=== PATIENT | female | born 1950 | race Caucasian/White ===

== ENCOUNTER 2018-09-03 11:57 | Inpatient (IN) | payer OTHER ==
[~2018-09-03] VITALS: Ht 157.5 cm; Wt 74.4 kg
[2018-09-03 12:00] VITALS: BP_SYST 81
[2018-09-03] MEDS ORDERED: NACL 0.9% 1,000 ML IV ONE ×2 (12:11→12:15)
[2018-09-03 12:35] LABS: BASOPHILS # (AUTO) 0.1 K/uL (0.0-0.2); BASOPHILS % (AUTO) 0.8 % (0.0-2.0); EOSINOPHILS % (AUTO) 0.1 % (0.0-4.0); HEMATOCRIT 38.4 % (36-48); HEMOGLOBIN 12.7 g/dL (12.0-16.0); LYMPHOCYTES # (AUTO) 0.5 K/uL (1.0-5.5); LYMPHOCYTES % (AUTO) 3.4 % (20.5-51.5); MEAN CORPUSCULAR HEMOGLOBIN 29 pg (27-31); MEAN CORPUSCULAR HGB CONC 33 % (32-36); MEAN CORPUSCULAR VOLUME 86 fL (79.0-98.0); MONOCYTES # (AUTO) 0.8 K/uL (0.0-1.0); MONOCYTES % (AUTO) 5.7 % (1.7-9.3); NEUTROPHILS # (AUTO) 12.5 K/uL (1.8-7.7); PLATELET COUNT (AUTO) 194 K/uL (130-430); RED BLOOD CELL COUNT(AUTO) 4.45 MIL/uL (4.2-6.2); RED CELL DISTRIBUTION WIDTH 12.7 % (9.0-15.0); WHITE BLOOD COUNT (AUTO) 13.9 K/uL (4.8-10.8)
[2018-09-03 12:44] LABS: CALCIUM 8.5 mg/dL (8.4-11.0); CREATININE 1.56 mg/dL (0.55-1.30); POTASSIUM 3.8 mmol/L (3.5-5.1)
[2018-09-03 12:48] LABS: ALBUMIN 3.1 g/dL (3.4-4.8)
[2018-09-03 14:44] VITALS: BP_SYST 114
[2018-09-03 15:31] LABS: BILIRUBIN,URINE NEGATIVE (NEGATIVE); BLOOD, URINE 2+ (NEGATIVE); CLARITY/URINE CLEAR (CLEAR); COLOR,URINE YELLOW (YELLOW); GLUCOSE,URINE NEGATIVE (NEGATIVE); KETONES,URINE NEGATIVE (NEGATIVE); LEUKOCYTE ESTERASE ,URINE 1+ (NEGATIVE); NITRITE, URINE POSITIVE (NEGATIVE); PH,URINE 5.5 (5.0-8.0); PROTEIN URINE NEGATIVE (NEGATIVE); UROBILINOGEN,URINE 0.2 (0.2-1.0)
[2018-09-03 15:36] LABS: BACTERIA,URINE MODERATE /HPF (None Seen)
[2018-09-03] MEDS: NACL 0.9% 1,000 ML IV SCH (15:37)
[2018-09-03] MEDS ORDERED: LISI-600 PO (17:58)
[2018-09-03] MEDS ORDERED: CARV12.548 PO (17:58)
[2018-09-03 19:35] VITALS: BP_SYST 116
[2018-09-04 00:11] VITALS: BP_SYST 140
[2018-09-04] MEDS ORDERED: ONDANSETRON HCL 4 MG/2 ML VIAL IVP PRN (00:45)
[2018-09-04] MEDS ORDERED: LORazepam 1 MG TABLET PO ONE (00:45)
[2018-09-04] MEDS: NACL 0.9% 1,000 ML IV SCH ×2 (05:01→19:56)
[2018-09-04] MEDS ORDERED: cloNIDine HCL 0.1 MG TABLET PO PRN (07:30)
[2018-09-04] MEDS ORDERED: ENALAPRILAT DIHYDRATE 1.25 MG/ML VIAL IVP PRN (07:30)
[2018-09-04] MEDS ORDERED: hydrALAZINE HCL 20 MG/ML VIAL IVP PRN (07:30)
[2018-09-04 08:05] VITALS: BP_SYST 129
[2018-09-04] MEDS: CARVEDILOL 12.5 MG TABLET (COREG) PO SCH ×2 (08:55→21:24)
[2018-09-04 10:07] LABS: BASOPHILS % (AUTO) 0.2 % (0.0-2.0); EOSINOPHILS # (AUTO) 0.1 K/uL (0.0-0.4); EOSINOPHILS % (AUTO) 0.6 % (0.0-4.0); HEMATOCRIT 34.4 % (36-48); HEMOGLOBIN 11.5 g/dL (12.0-16.0); LYMPHOCYTES % (AUTO) 8.8 % (20.5-51.5); MEAN CORPUSCULAR HEMOGLOBIN 29 pg (27-31); MEAN CORPUSCULAR HGB CONC 34 % (32-36); MEAN CORPUSCULAR VOLUME 87 fL (79.0-98.0); MONOCYTES % (AUTO) 9.1 % (1.7-9.3); NEUTROPHILS # (AUTO) 8.7 K/uL (1.8-7.7); NEUTROPHILS % (AUTO) 81.3 % (40.0-70.0); PLATELET COUNT (AUTO) 206 K/uL (130-430); RED BLOOD CELL COUNT(AUTO) 3.98 MIL/uL (4.2-6.2); RED CELL DISTRIBUTION WIDTH 12.9 % (9.0-15.0); WHITE BLOOD COUNT (AUTO) 10.8 K/uL (4.8-10.8)
[2018-09-04 10:22] LABS: CREATININE 0.89 mg/dL (0.55-1.30); POTASSIUM 3.7 mmol/L (3.5-5.1)
[2018-09-04 10:49] LABS: ALBUMIN 2.6 g/dL (3.4-4.8); THYROID STIMULATING HORMONE 3.06 uIu/mL (0.34-4.82); TOTAL BILIRUBIN 0.5 mg/dL (0.0-1.0)
[2018-09-04 11:23] VITALS: BP_SYST 139
[2018-09-04 15:29] VITALS: BP_SYST 144
[2018-09-04] MEDS ORDERED: DIATR MEGLU/DIATRIZ SOD 30 ML SOLUTION PO ONE (16:16)
[2018-09-04 19:45] VITALS: BP_SYST 137
[2018-09-04] MEDS ORDERED: TEMAZEPAM 15 MG CAPSULE PO PRN (20:45)
[2018-09-05 00:11] VITALS: BP_SYST 140
[2018-09-05 05:51] VITALS: BP_SYST 140
[2018-09-05 08:00] VITALS: BP_SYST 154
[2018-09-05] MEDS: CARVEDILOL 12.5 MG TABLET (COREG) PO SCH (08:53)
[2018-09-05] MEDS ORDERED: LEVOFLOXACIN 500 MG TABLET PO ONE (09:00)
[2018-09-05 09:26] VITALS: BP_SYST 154
[2018-09-05] MEDS ORDERED: OMEP20TA20 PO (09:30)
[2018-09-05] MEDS ORDERED: CIPR-211 PO (09:31)
== END 2018-09-05 10:20 | disposition home or self-care (01) | DRG 314 ==
LOC: SED 11:57 → STU 13:56
PROVIDERS: ADMIT Internal Medicine Hospice and Palliative Medicine; ATTEND Internal Medicine Hospice and Palliative Medicine
DX: I95.9 Hypotension, unspecified (principal); N17.0 Acute kidney failure with tubular necrosis; E87.1 Hypo-osmolality and hyponatremia; N39.0 Urinary tract infection, site not specified; I10 Essential (primary) hypertension; E11.65 Type 2 diabetes mellitus with hyperglycemia; E87.8 Other disorders of electrolyte and fluid balance, not elsewhere classified; R10.9 Unspecified abdominal pain; R16.0 Hepatomegaly, not elsewhere classified; E86.0 Dehydration; Z88.0 Allergy status to penicillin; Z88.8 Allergy status to other drugs, medicaments and biological substances
CPT/HCPCS: 36415; 71045; 76700-TC; 80053; 81000-TC; 82533; 82962; 83605; 83690-TC; 84443-TC; 85025; 87040-TC; 87086; 87186-TC; 93005; 96360; 96361; 99285; G0378; J2405; J7030; Q9964

== ENCOUNTER 2019-12-22 06:05 | Day surgery (SDC) | payer OTHER ==
[~2019-12-22] VITALS: Ht 160 cm; Wt 72.6 kg
[~2019-12-22 06:05] MED LIST: CARV12.548 PO; CIPR-211 PO; OMEP20TA20 PO
[2019-12-22] MEDS ORDERED: LORA-258 PO (07:30)
[2019-12-22] MEDS ORDERED: ROSU10TA2 PO (07:30)
[2019-12-22] MEDS ORDERED: XALEYE OP (07:30)
[2019-12-22] MEDS ORDERED: TIMO5DRO15 EACH EYE (07:30)
[2019-12-22] MEDS ORDERED: LISI-600 PO (07:30)
[2019-12-22] MEDS ORDERED: GLUXR500 PO (07:30)
[2019-12-22] MEDS ORDERED: SEVOFLURANE 15 MIN GAS INH ONE (07:40)
[2019-12-22] MEDS ORDERED: CLINDAMYCIN PHOSPHATE 900 mg/50mL D5W IV ONE (07:40)
[2019-12-22] MEDS ORDERED: PROPOFOL 200MG/ 20ML VIAL (DIPRIVAN) IV ONE (07:40)
[2019-12-22] MEDS ORDERED: NS IRRIG SOLN 1000 ML IR ONE (07:40)
[2019-12-22] MEDS ORDERED: LR 1,000 ML IV.SOLN IV ONE (07:40)
[2019-12-22] MEDS ORDERED: SUCCINYLCHOLINE CHLORIDE 20 MG/ML(QUELICIN) IVP ONE (07:40)
[2019-12-22] MEDS ORDERED: fentaNYL CITRATE 250 MCG/5 ML AMP IV ONE (07:40)
[2019-12-22] MEDS ORDERED: KETOROLAC TROMETHAMINE 30 MG VIAL IVP ONE (07:40)
[2019-12-22] MEDS ORDERED: DEXAMETHASONE SOD PHOSPHATE 4 MG/ML VIAL IVP ONE (07:40)
[2019-12-22] MEDS ORDERED: LIDOCAINE/EPI 1% 1:100000 20 ML VIAL INJ ONE (07:40)
[2019-12-22] MEDS ORDERED: ONDANSETRON HCL 4 MG/2 ML VIAL IVP ONE (07:40)
[2019-12-22] MEDS ORDERED: THROMBIN (BOVINE) 5000 UNITS/ VIAL TP ONE (07:54)
[2019-12-22] MEDS ORDERED: ONDANSETRON HCL 4 MG/2 ML VIAL IVP PRN (08:15)
[2019-12-22] MEDS ORDERED: HYDROmorphone 1 MG INJ. 1 MG/ML AMPUL IVP PRN (08:15)
[2019-12-22] MEDS ORDERED: HYDROcodone/ACETAMIN 5-325 MG TAB (NORCO/ VICODIN) PO PRN (10:00)
[2019-12-22] MEDS ORDERED: HYDROmorphone 1 MG INJ. 1 MG/ML AMPUL ONE (10:52)
--- NOTE | 2019-12-22 11:20 | NUR ---
Patient transferred to unit in stable condition. No distress noted.
[2019-12-22 11:40] VITALS: BP_SYST 161
[2019-12-22] MEDS: NORMAL SALINE 5 ML DISP.SYRIN IVF SCH ×4 (14:30→22:00)
--- NOTE | 2019-12-22 14:30 | NUR ---
Routine Patient resting quietly in bed with no complaint of pain at this time. Patient stable.
[2019-12-22 16:39] VITALS: BP_SYST 162
--- NOTE | 2019-12-22 17:30 | NUR ---
Routine Patient resting in bed with eyes closed. No distress noted at this time. Patient stable.
--- NOTE | 2019-12-22 19:22 | NUR ---
PAGED PAGED DOCTOR BEDOLLA
--- NOTE | 2019-12-22 19:54 | NUR ---
2ND PAGE PAGED DOCTOR CHIOMA
[2019-12-22 20:00] VITALS: BP_SYST 138
--- NOTE | 2019-12-22 20:12 | NUR ---
PAGED PAGED DOCTOR SHIN FOR ORDERS
[2019-12-22] MEDS ORDERED: DIPHENHYDRAMINE HCL 25 MG CAPSULE PO ONE (21:00)
[2019-12-22] MEDS: CARVEDILOL 12.5 MG TABLET (COREG) PO SCH (22:55)
[2019-12-22] MEDS: DEXAMETHASONE SOD PHOSPHATE 4 MG/ML VIAL IVP SCH (22:56)
[2019-12-23 00:19] VITALS: BP_SYST 118
[2019-12-23] MEDS: NORMAL SALINE 5 ML DISP.SYRIN IVF SCH ×4 (06:39→14:00)
[2019-12-23] MEDS: DEXAMETHASONE SOD PHOSPHATE 4 MG/ML VIAL IVP SCH (06:40)
--- NOTE | 2019-12-23 07:42 | NUR ---
12/23/19 at 0630 Fingerstick = 184.
[2019-12-23 07:54] VITALS: BP_SYST 127
--- NOTE | 2019-12-23 08:00 | NUR ---
Note Pt sitting up in bed eating her breakfast. No SOB/resp distress or throat pain/discomfort or difficulty swallowing/eating noted at this time. IV in left wrist intact and patent at this time. Dr Potter was at bedside at 0750am. Assessment completed and dressing on throat was removed. Incision at throat intact with steri- strips. No bleeding/swelling/drainage/odor noted at this time. No needs noted at this time. Call light within reach.
[2019-12-23] MEDS: CARVEDILOL 12.5 MG TABLET (COREG) PO SCH (08:30)
[2019-12-23] MEDS ORDERED: LISINOPRIL 20 MG TABLET PO SCH (09:00)
--- NOTE | 2019-12-23 11:35 | NUR ---
Note Pt has been ambulating in room and to restroom with steady gait. Pt denies any needs at this time. Pt will be leaving at 1400 to go home. Family will pick pt up. Call light within reach.
[2019-12-23 12:30] VITALS: BP_SYST 135
[2019-12-23 13:16] VITALS: BP_SYST 124
--- NOTE | 2019-12-23 13:45 | NUR ---
Note Pt's left wrist IV was dc'd and site benign. No swelling/bleeding/tenderness noted at site. Pt denies any SOB/resp distress or throat pain/discomfort at this time. Pt given discharge instructions and questions/concerns were answered at this time. Pt packed all belongings. Checked side table and drawers for belongings. Pt stable. Pt dressed in street clothes at this time.
--- NOTE | 2019-12-23 14:55 | NUR ---
Note Pt off the floor to private car with belongings and discharge paperwork. Pt's throat incision intact and steri strips clean/dry/intact at this time. Pt was checked q1' and PRN all shift for needs and care. Pt stable.
[2019-12-23] MEDS ORDERED: DIPHENHYDRAMINE HCL 25 MG CAPSULE PO ONE (21:00)
== END 2019-12-23 15:55 | disposition home or self-care (01) ==
LOC: SDS 06:05 → SMU 06:05 → EDSTATUS 07:30 → SMU 11:41 → SDS 12-23 15:55
PROVIDERS: ATTEND Otolaryngology Plastic Surgery within the Head & Neck
DX: C73 Malignant neoplasm of thyroid gland (principal); I10 Essential (primary) hypertension; E11.9 Type 2 diabetes mellitus without complications; F32.9 Major depressive disorder, single episode, unspecified; K21.9 Gastro-esophageal reflux disease without esophagitis; M81.0 Age-related osteoporosis without current pathological fracture; E78.5 Hyperlipidemia, unspecified; J45.909 Unspecified asthma, uncomplicated; Z88.0 Allergy status to penicillin; M19.90 Unspecified osteoarthritis, unspecified site
CPT/HCPCS: 36415; 60240; 82310; 82962; 88307; 88333; C1782; J0330; J1100 ×2; J1170; J1885; J2405; J2704; J3010; J3490; J7120; Q0163

== ENCOUNTER 2022-03-23 14:13 | Emergency (ER) | payer BC, OTHER ==
[~2022-03-23] VITALS: Ht 157.5 cm; Wt 72.6 kg
[~2022-03-23 14:13] MED LIST changes: -CIPR-211 PO; +CIPR500T5 PO; +GLUXR500 PO; +LISI20TA30 PO; +LORA-258 PO; +ROSU10TA2 PO; +TIMO5DRO15 EACH EYE; +XALEYE OP
[2022-03-23 14:15] VITALS: BP_SYST 129
--- NOTE | 2022-03-23 14:15 | NUR ---
Placed in room 7 . Placed on sales development executive, blood pressure machine and pulse oximeter. To gown for exam. Side rails up. Report given to MADYSON MARTINEZ.
--- NOTE | 2022-03-23 14:17 | NUR ---
ER DR. ROBINS AT THE BEDSIDE EXAMINING PT
--- NOTE | 2022-03-23 14:22 | NUR ---
PT BIBA FROM [facility] WHERE PT BECAME SUDDENLY VERY TIRED AND HAD A DIZZY SPELL. PER EMS PT WAS BRADYCARDIC ON SCENE 48BPM. PT ARRIVES AAOX4, VSS C/O FEELING "TIRED"
[2022-03-23 15:22] LABS: BASOPHILS % (AUTO) 0.5 % (0.0-2.0); EOSINOPHILS # (AUTO) 0.1 K/uL (0.0-0.4); EOSINOPHILS % (AUTO) 1.7 % (0.0-4.0); HEMATOCRIT 34.2 % (36-48); HEMOGLOBIN 11.6 g/dL (12.0-16.0); LYMPHOCYTES # (AUTO) 0.9 K/uL (1.0-5.5); LYMPHOCYTES % (AUTO) 14.4 % (20.5-51.5); MEAN CORPUSCULAR HEMOGLOBIN 29 pg (27-31); MEAN CORPUSCULAR HGB CONC 34 % (32-36); MEAN CORPUSCULAR VOLUME 85 fL (79.0-98.0); MONOCYTES # (AUTO) 0.7 K/uL (0.0-1.0); MONOCYTES % (AUTO) 10.3 % (1.7-9.3); NEUTROPHILS # (AUTO) 4.7 K/uL (1.8-7.7); NEUTROPHILS % (AUTO) 73.1 % (40.0-70.0); PLATELET COUNT (AUTO) 227 K/uL (130-430); RED BLOOD CELL COUNT(AUTO) 4.01 MIL/uL (4.2-6.2); WHITE BLOOD COUNT (AUTO) 6.5 K/uL (4.8-10.8)
--- NOTE | 2022-03-23 15:26 | NUR ---
COVID SWAB DONE AT BEDSIDE
[2022-03-23 15:28] LABS: ANION GAP 9 (5-15); CALCIUM 8.5 mg/dL (8.4-11.0); CHLORIDE 96 mmol/L (98-107); GLUCOSE 180 mg/dL (70-99); POTASSIUM 4.1 mmol/L (3.5-5.1); SODIUM SERUM 129 mmol/L (136-145); UREA NITROGEN, BLOOD 30 mg/dL (8-21)
[2022-03-23 15:42] LABS: ALANINE AMINOTRANSFERASE 20 U/L (12-78); ALBUMIN 3.5 g/dL (3.4-4.8); ASPARTATE AMINOTRANSFERASE 21 U/L (10-37); THYROID STIMULATING HORMONE 0.08 uIu/mL (0.36-3.74); TOTAL BILIRUBIN 0.3 mg/dL (0.0-1.0)
[2022-03-23 16:18] LABS: BILIRUBIN,URINE NEGATIVE (NEGATIVE); CLARITY/URINE CLEAR (CLEAR); COLOR,URINE YELLOW (YELLOW); GLUCOSE,URINE NEGATIVE (NEGATIVE); KETONES,URINE NEGATIVE (NEGATIVE); LEUKOCYTE ESTERASE ,URINE 1+ (NEGATIVE); NITRITE, URINE NEGATIVE (NEGATIVE); PROTEIN URINE NEGATIVE (NEGATIVE); UROBILINOGEN,URINE 0.2 (0.2-1.0)
[2022-03-23 16:20] LABS: BLOOD, URINE TRACE (NEGATIVE)
[2022-03-23 16:34] LABS: BACTERIA,URINE MODERATE /HPF (None Seen); MUCUS,URINE None Seen /LPF (None Seen); RBC,URINE NONE SEEN /HPF (0-3)
[2022-03-23 17:08] VITALS: BP_SYST 155
== END 2022-03-23 17:08 | disposition home or self-care (01) ==
LOC: SED 14:13
DX: R00.1 Bradycardia, unspecified (principal); T46.5X5A Adverse effect of other antihypertensive drugs, initial encounter; R53.1 Weakness; R42 Dizziness and giddiness; E11.9 Type 2 diabetes mellitus without complications; I10 Essential (primary) hypertension; Z88.0 Allergy status to penicillin; Z88.5 Allergy status to narcotic agent; Z79.899 Other long term (current) drug therapy; Z20.822 Contact with and (suspected) exposure to COVID-19
CPT/HCPCS: 36415; 71045; 80053; 81000; 83605; 84443; 85025; 87040; 87086; 93005; 99285